=== PATIENT | female | born 1945 | race Caucasian/White ===

== ENCOUNTER 2017-01-10 08:12 | Inpatient (IN) | payer OTHER ==
[~2017-01-10] VITALS: Ht 160 cm; Wt 62.1 kg
--- NOTE | ~2017-01-10 | HC ---
Formerly [facility] [place] [address] CONSULTATION Name: RM MARTINEZ Room #: 428-P ADM IN M.R.#: [id number] Admission: 01/10/17 Attend Phys: Landon Allen Discharge: Date of : 45 Report #: [id number] THIS REPORT FOR: //name// CC: Landon Colindres REASON FOR CONSULTATION: I was asked to evaluate concerning intra-abdominal abscess and perforated appendix. HISTORY OF PRESENT ILLNESS: The patient is a 71-year-old who presented on 01/10/2017, with a day history of progressive abdominal discomfort. Two days prior to admit, she had significant increase in her pain mostly in the lower abdomen. She was admitted through the emergency room where a CAT scan showed evidence of a pelvic abscess with abnormal appendix extending into the region. There was also some thickening of the left colon without evidence of diverticular disease. Attempt at percutaneous drainage failed because of an inadequate window. She therefore underwent laparoscopic drainage procedure. It was reported thick green purulent fluid aspirated from the pelvis approximately 50 mL. Abscess cavity was washed out and a 19-Comoran Jhon drain was placed within the cavity. It appeared that the appendix had perforated. She has been treated with Zosyn, which she is tolerating well without side effect. She remains afebrile and hemodynamically stable. She does require oxygen 6 liters per nasal cannula. She reports her previous colonoscopy being normal about a year ago. ALLERGIES: None known. MEDICATIONS: As noted on her MAR including Zosyn, atorvastatin, levothyroxine, and fluoxetine. PAST MEDICAL HISTORY: ND, hysterectomy, total thyroidectomy, depression, hyperlipidemia, and left shoulder spur removal. FAMILY HISTORY: Coronary artery disease and cancer. SOCIAL HISTORY: Past smoker. No significant alcohol intake. REVIEW OF SYSTEMS: No cough or sputum production. No chest pain. Denies any dysuria or frequency. She has not had a bowel movement yet. She is taking liquids by mouth. PHYSICAL EXAMINATION: VITAL SIGNS: Afebrile and hemodynamically stable. GENERAL: Alert, cooperative and pleasant, in no acute distress. HEENT: Unremarkable. CHEST: Clear. HEART: Regular. Formerly [facility] [address] [place] [address] CONSULTATION Name: RM MARTINEZ Room #: 428-P [facility] IN M.R.#: [id number] Admission: 01/10/17 Attend Phys: Landon Allen Discharge: Date of : 45 Report #: [id number] ABDOMEN: Diffusely tender mostly in the left lower quadrant. Incisions unremarkable. Drain with purulent fluid . EXTREMITIES: Unremarkable. LABORATORY STUDIES: Sodium 137, potassium 2.9, bicarbonate 24, and creatinine 1. Liver function test normal. Hemoglobin 9.4, white count 15.1, 6% bands, 90% neutrophils, and platelet count 356,000. Urinalysis, many wbc's, moderate bacteria. Blood cultures negative. Urine culture, mixed myra, low colony counts. Abscess cavity fluid, mixed myra thus far. IMPRESSION: Postoperative day #1 from laparoscopic drainage of a pelvic abscess related to perforated appendicitis. Overall, the patient has improved, although she still has leukocytosis. She has increased oxygen requirements likely due to atelectasis in her bases. RECOMMENDATIONS: We will continue IV antibiotic therapy until we get better control of this infection. Continue with pulmonary toilet, incentive spirometry, and followup chest x-ray. Duration of her antibiotics will dependent upon her response to therapy. <ELECTRONICALLY SIGNED> By: Zelalem Pastor MD 01/14/17 1132 1238 1318 Zelalem Pastor MD /nt
--- NOTE | ~2017-01-10 | EKG ---
[place] [address] [address] [place] [address] ELECTROCARDIOGRAM REPORT Name: RM MARTINEZ Room #: 428-P ADM IN M.R.#: [id number] Admission: 01/10/17 Attend Phys: Landon Allen Discharge: Date of : 45 Report #: [id number] THIS REPORT FOR: //name// [facility] Test Date: 2017-01-11 Test Time: 16:31:51 Pat Name: RM MARTINEZ Department: Room: 428 P Gender: F Test Preparer: Ella : 1945 Requested By: Liam Reno Order Number: [id number] MD: Jose Hammer Measurements Intervals [place] Rate: 112 P: 54 CT: 128 QRS: -4 QRSD: 79 T: 58 QT: 369 QTc: 504 Interpretive Statements Sinus tachycardia Abnormal R-wave progression, early transition Nonspecific ST and T wave abnormality Prolonged QT interval Compared to ECG 11/22/2007 06:59:[address] and T wave abnormality is less pronounced Electronically Signed On 01-12-2017 8:05:58 CDT by Jose Hammer [email or web address] <ELECTRONICALLY SIGNED> By: Jose Hammer MD, [facility] 01/12/17 0805 1631 1631 Jose Hammer MD, [facility] /EPI
--- NOTE | ~2017-01-10 | EKG ---
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 : 1945 Requested By: Landon Allen Order Number: [id number] MD: Jose Hammer Measurements Intervals [place] Rate: 105 P: 39 KS: 126 QRS: -5 QRSD: 75 T: 228 QT: 350 QTc: 463 Interpretive Statements Sinus tachycardia Left atrial enlargement Abnormal R-wave progression, early transition Borderline repolarization abnormality Artifact in lead(s) I,III,aVR,aVL,aVF Compared to ECG 01/11/2017 16:31:51 No significant change was found Electronically Signed On 01-13-2017 9:46:05 CDT by Jose Hammer [email or web address] <ELECTRONICALLY SIGNED> By: Jose Hammer MD, [facility] 01/13/17 0946 1447 1447 Jose Hammer MD, [facility] /EPI
--- NOTE | ~2017-01-10 | 2DMMODE ---
[facility] [address] [place] [address] 2 D/M-MODE ECHOCARDIOGRAM Name: JUANRM JANUSZ Room #: 428-P ADM IN M.R.#: [id number] Admission: 01/10/17 Attend Phys: Landon Chandler Discharge: Date of : 45 Date of Service: 01/17/17 1642 Report #: [id number] THIS REPORT FOR: //name// APPROVED REPORT Study performed: 01/17/2017 13:04:07 EXAM: Comprehensive 2D, Doppler, and color-flow Echocardiogram Patient Location: Bedside Room #: 428 Status: routine BSA: 1.64 HR: 102 bpm BP: 117/65 mmHg Other Information Study Quality: Adequate Indications Post-op Pulmonary edema. 2D Dimensions IVC: 14.00 mm Volumes Left Atrial Volume (Systole) Single Plane 4CH: 37.02 mL Single Plane 2CH: 35.15 mL LA ESV Index: 24.00 mL/m2 Tricuspid Valve PA Pressure: 37.00 mmHg Left Ventricle The left ventricle is normal size. There is normal LV segmental wall motion. There is normal left ventricular wall thickness. Left ventricular systolic function is hyperdynamic. Intracavatary left ventricular peak gradient of 24 mmHg. LVEF is >70%. Grade I - abnormal relaxation pattern. Right Ventricle The right ventricle is normal size. The right ventricular systolic function is normal. Atria The left atrium size is normal. The right atrium size is [facility] [address] [place] [address] 2 D/M-MODE ECHOCARDIOGRAM Name: RM MARTINEZ Room #: 428-P ADM IN M.R.#: [id number] Admission: 01/10/17 Attend Phys: Landon Chandler Discharge: Date of : 45 Date of Service: 01/17/17 1642 Report #: [id number] normal. Aortic Valve Aortic valve is not well visualized. No aortic regurgitation is present. There is no aortic valvular stenosis. Mitral Valve The mitral valve is normal in structure. Trace mitral regurgitation. No evidence of mitral valve stenosis. Tricuspid Valve The tricuspid valve is normal in structure. There is trace tricuspid regurgitation. There is mild pulmonary hypertension. Pulmonic Valve The pulmonary valve is normal in structure. There is no pulmonic valvular regurgitation. Great Vessels The aortic root is normal in size. IVC is normal in size and collapses >50% with inspiration. Pericardium There is no pericardial effusion. <Conclusion> Limited study Left ventricular systolic function is hyperdynamic. Asymmetric septal hypertrophy suggested. Intracavatary left ventricular peak gradient of 24 mmHg. There is normal LV segmental wall motion. LVEF >70%. Grade I diastolic dysfunction Aortic valve is not well visualized. No stenosis or insufficiency The mitral valve is normal in structure. Trace mitral regurgitation. Pulmonary artery pressure could not be reliably ascertained. There is no pericardial effusion. <ELECTRONICALLY SIGNED> By: Jose Hammer MD, [facility] 01/17/171641 41 41 Jose Hammer MD, [facility] /INF
[~2017-01-10 08:12] MED LIST: CRESTOR40 MG PO; MOBIC15 MG PO; PROZAC20 MG PO; SYNTHROID175 MCG PO
[2017-01-10 08:13] VITALS: BP 153/77
[2017-01-10 09:06] LABS: HEMATOCRIT 37.1 % (37.0-47.0); HEMOGLOBIN 12.7 gm/dL (12.0-15.0); MCH 29.4 pg (26.0-34.0); MCHC 34.1 g/dL (28.0-37.0); MCV 86.4 fL (80.0-100.0); PLATELET COUNT 373 thou/uL (150-400); RDW 13.7 % (10.5-14.5); WBC 18.5 thou/uL (4.0-11.0)
[2017-01-10 09:08] LABS: MANUAL DIFF YES
[2017-01-10 09:28] LABS: URINE BILIRUBIN 1+ (Negative); URINE BLOOD 2+ (Negative); URINE COLOR YELLOW; URINE GLUCOSE-RANDOM* NEGATIVE (Negative); URINE KETONES TRACE (Negative); URINE NITRITE NEGATIVE (Negative); URINE PROTEIN (DIPSTICK) 2+ (Negative); URINE SPECIFIC GRAVITY 1.025 (1.003-1.035)
[2017-01-10 09:31] LABS: ICTOTEST (BILI CONFIRMATORY) Negative (Negative)
[2017-01-10 09:35] LABS: HYALINE CASTS 0-3 Few /LPF (None Seen); SQUAMOUS 4-10 Moderate /LPF (0-3); URINE WBC >25 Many /HPF (0-5)
[2017-01-10 09:36] LABS: AMORPHOUS URATES Few /LPF (None Seen); URINE RBC None Seen /HPF (0-2)
[2017-01-10 09:42] LABS: ABSOLUTE NEUTROPHILS 15.9 thou/uL (1.4-8.2); PLATELET ESTIMATE NORMAL; TOTAL CELL COUNT 100
[2017-01-10 09:42] LABS: ANION GAP 10 mmol/L (7-16); BUN 12 mg/dL (7-18); CALCIUM 6.6 mg/dL (8.5-10.1); CHLORIDE 99 mmol/L (98-107); CO2 26 mmol/L (21-32); GLUCOSE 146 mg/dL (74-106); POTASSIUM 3.7 mmol/L (3.5-5.1); SODIUM 135 mmol/L (136-145)
[2017-01-10 09:47] LABS: ALKALINE PHOSPHATASE 120 U/L (46-116); DIRECT BILIRUBIN < 0.1 mg/dL (<0.1-0.3); SGOT 15 U/L (15-37); SGPT 16 U/L (30-65); TOTAL BILIRUBIN 0.4 mg/dL (<0.1-1.0); TOTAL PROTEIN 7.9 g/dL (6.4-8.2)
[2017-01-10 10:49] VITALS: BP 140/73
[2017-01-10 11:17] VITALS: BP 139/64
[2017-01-10] MEDS ORDERED: LIPITOR 10 MG10 M1 PO (12:09)
[2017-01-10 13:33] LABS: TSH 4.086 uIU/mL (0.358-3.740)
[2017-01-10] MEDS ORDERED: WELLBUTRIN XL150 MG PO (15:13)
[2017-01-10] MEDS ORDERED: CALCIUM 600 +1 EAC1 PO (15:14)
[2017-01-10] MEDS ORDERED: ASPIRIN EC81 M1 PO (15:14)
[2017-01-10] MEDS ORDERED: TYLENOL EXTRA500 MG PO (15:16)
[2017-01-10] MEDS ORDERED: IBUPROFEN 200200 M1 PO (15:17)
[2017-01-10 20:00] VITALS: BP 118/66
[2017-01-11 00:45] VITALS: BP 100/57
[2017-01-11 04:00] VITALS: BP 122/73
[2017-01-11 05:11] LABS: GLYCOHEMOGLOBIN (HGB A1C) 6.2 % (4.8-5.6)
[2017-01-11 06:18] LABS: HEMATOCRIT 31.7 % (37.0-47.0); MCH 28.4 pg (26.0-34.0); MCHC 32.7 g/dL (28.0-37.0); PLATELET COUNT 339 thou/uL (150-400); RBC 3.64 mil/uL (4.20-5.00); RDW 13.8 % (10.5-14.5); WBC 19.3 thou/uL (4.0-11.0)
[2017-01-11 06:19] LABS: HEMOGLOBIN 10.4 gm/dL (12.0-15.0); MANUAL DIFF YES
[2017-01-11 06:30] LABS: CREATININE 1.1 mg/dL (0.6-1.0); MAGNESIUM 1.8 mg/dL (1.8-2.4); POTASSIUM 3.7 mmol/L (3.5-5.1)
[2017-01-11 06:40] LABS: CALCIUM 5.8 mg/dL (8.5-10.1)
[2017-01-11 08:56] VITALS: BP 121/64
[2017-01-11 09:37] LABS: ABSOLUTE NEUTROPHILS 17.4 thou/uL (1.4-8.2); TOTAL CELL COUNT 100
[2017-01-11 09:38] LABS: PLATELET ESTIMATE NORMAL
[2017-01-11 10:04] VITALS: BP 121/64
[2017-01-11 11:47] LABS: INR 1.1
[2017-01-11 16:41] VITALS: BP 106/61
[2017-01-11 20:30] VITALS: BP 132/64
[2017-01-12 03:52] VITALS: BP 97/51
[2017-01-12 07:29] LABS: HEMATOCRIT 29.1 % (37.0-47.0); HEMOGLOBIN 9.7 gm/dL (12.0-15.0); MCH 28.8 pg (26.0-34.0); MCHC 33.2 g/dL (28.0-37.0); MCV 86.9 fL (80.0-100.0); PLATELET COUNT 329 thou/uL (150-400); RBC 3.35 mil/uL (4.20-5.00); RDW 13.7 % (10.5-14.5); WBC 18.7 thou/uL (4.0-11.0)
[2017-01-12 07:33] LABS: MANUAL DIFF YES
[2017-01-12 07:45] LABS: ALBUMIN 2.1 g/dL (3.4-5.0); MAGNESIUM 1.8 mg/dL (1.8-2.4); POTASSIUM 3.3 mmol/L (3.5-5.1); TOTAL BILIRUBIN 0.5 mg/dL (<0.1-1.0); TOTAL PROTEIN 6.2 g/dL (6.4-8.2)
[2017-01-12 07:56] LABS: CALCIUM 5.4 mg/dL (8.5-10.1)
[2017-01-12 09:12] LABS: ABSOLUTE NEUTROPHILS 16.8 thou/uL (1.4-8.2); PLATELET ESTIMATE NORMAL; TOTAL CELL COUNT 100
[2017-01-12 11:07] VITALS: BP 115/63
[2017-01-12 11:30] VITALS: BP 83/53
[2017-01-12 12:00] VITALS: BP 106/58
[2017-01-12 12:30] VITALS: BP 85/63
[2017-01-12 14:55] LABS: ABG SAMPLE TYPE ARTERIAL; BE(vivo) -5.8 mmol/L (-2 to +3); HCO3 18.4 mmol/L (22.0-26.0); LACTATE 0.83 mmol/L (0.5-2.0); O2(CT) 13.7 mL/dL (15.0-23.0); O2Hb 91.1 % (92.0-98.0); PCO2 31.9 mmHg (35.0-45.0); PO2 63.9 mmHg (80.0-100.0); STICK SITE R.RADIAL; pH 7.379 (7.360-7.450); sO2 92.3 % (92.0-98.0); tCO2 19.4 mmol/L (24.0-30.0)
[2017-01-12 14:56] LABS: Face Shield 50 %; VDS 50% VENTI MASK cc
[2017-01-12 16:00] LABS: HEMATOCRIT 29.8 % (37.0-47.0); HEMOGLOBIN 9.8 gm/dL (12.0-15.0); MANUAL DIFF YES; MCH 28.9 pg (26.0-34.0); MCV 87.5 fL (80.0-100.0); PLATELET COUNT 341 thou/uL (150-400); WBC 20.8 thou/uL (4.0-11.0)
[2017-01-12 16:17] LABS: ANION GAP 12 mmol/L (7-16); BUN 7 mg/dL (7-18); CHLORIDE 102 mmol/L (98-107); CO2 22 mmol/L (21-32); CREATININE 0.9 mg/dL (0.6-1.0); GLUCOSE 162 mg/dL (74-106); MAGNESIUM 1.6 mg/dL (1.8-2.4); POTASSIUM 3.2 mmol/L (3.5-5.1); SODIUM 136 mmol/L (136-145); TROPONIN-I < 0.04 ng/mL (<0.04-0.07)
[2017-01-12 16:19] LABS: CALCIUM 5.1 mg/dL (8.5-10.1)
[2017-01-12 16:25] LABS: TOTAL CELL COUNT 100; TOXIC GRANULATION 1+
[2017-01-12 16:26] LABS: ANISOCYTOSIS SLIGHT; MICROCYTES SLIGHT
[2017-01-12 20:00] VITALS: BP 118/71
[2017-01-13 04:00] VITALS: BP 102/58
[2017-01-13 07:28] LABS: HEMATOCRIT 27.5 % (37.0-47.0); HEMOGLOBIN 9.4 gm/dL (12.0-15.0); MCH 29.5 pg (26.0-34.0); MCHC 34.2 g/dL (28.0-37.0); MCV 86.3 fL (80.0-100.0); RBC 3.19 mil/uL (4.20-5.00); RDW 14.2 % (10.5-14.5); WBC 15.1 thou/uL (4.0-11.0)
[2017-01-13 07:43] LABS: ALBUMIN 2.2 g/dL (3.4-5.0); ANION GAP 13 mmol/L (7-16); BUN 4 mg/dL (7-18); CHLORIDE 100 mmol/L (98-107); CO2 24 mmol/L (21-32); GLUCOSE 131 mg/dL (74-106); PHOSPHORUS 4.4 mg/dL (2.5-4.9); SODIUM 137 mmol/L (136-145)
[2017-01-13 07:45] LABS: POTASSIUM 2.8 mmol/L (3.5-5.1)
[2017-01-13 07:46] LABS: CALCIUM < 5.0 mg/dL (8.5-10.1)
[2017-01-13 07:58] VITALS: BP 66/47
[2017-01-13 15:37] VITALS: BP 119/52
[2017-01-13 20:00] VITALS: BP 98/61
[2017-01-14 04:30] VITALS: BP 93/59
[2017-01-14 06:22] LABS: HEMATOCRIT 27.1 % (37.0-47.0); MCH 29.1 pg (26.0-34.0); MCHC 33.4 g/dL (28.0-37.0); MCV 87.1 fL (80.0-100.0); RBC 3.11 mil/uL (4.20-5.00); RDW 13.9 % (10.5-14.5); WBC 10.1 thou/uL (4.0-11.0)
[2017-01-14 06:32] LABS: CREATININE 0.8 mg/dL (0.6-1.0); PHOSPHORUS 4.2 mg/dL (2.5-4.9); POTASSIUM 3.3 mmol/L (3.5-5.1)
[2017-01-14 07:06] LABS: CALCIUM 5.8 mg/dL (8.5-10.1)
[2017-01-14 08:00] VITALS: BP 86/56
[2017-01-14 16:00] VITALS: BP 105/72
[2017-01-14 20:36] VITALS: BP 133/63
[2017-01-15 03:25] VITALS: BP 96/60
[2017-01-15 08:00] VITALS: BP 109/69
[2017-01-15 16:00] VITALS: BP 101/51
[2017-01-15 20:36] VITALS: BP 102/59
[2017-01-16 03:38] VITALS: BP 102/53
[2017-01-16 06:33] LABS: CREATININE 0.9 mg/dL (0.6-1.0)
[2017-01-16 06:34] LABS: CALCIUM 5.4 mg/dL (8.5-10.1)
[2017-01-16 10:05] VITALS: BP 118/71
[2017-01-16 16:42] VITALS: BP 90/50
[2017-01-16 20:30] VITALS: BP 88/52
[2017-01-17 04:30] VITALS: BP 116/67
[2017-01-17 07:50] VITALS: BP 117/65
[2017-01-17 15:31] VITALS: BP 113/72
[2017-01-17 19:21] VITALS: BP 106/60
[2017-01-18 04:53] VITALS: BP 120/80
[2017-01-18 06:27] LABS: ALBUMIN 2.4 g/dL (3.4-5.0); CREATININE 0.9 mg/dL (0.6-1.0); PHOSPHORUS 4.7 mg/dL (2.5-4.9); POTASSIUM 3.7 mmol/L (3.5-5.1)
[2017-01-18 06:28] LABS: CALCIUM 5.6 mg/dL (8.5-10.1)
[2017-01-18 07:45] VITALS: BP 114/64
[2017-01-18] MEDS ORDERED: AUGMENTIN 875-1 EACH PO (09:37)
[2017-01-18] MEDS ORDERED: PROBIOTIC1 EAC1 PO (09:37)
[2017-01-18] MEDS ORDERED: GLUCOPHAGE500 MG PO (09:38)
[2017-01-18 15:30] VITALS: BP 118/73
[2017-01-18 20:55] VITALS: BP 105/63
[2017-01-19 03:58] VITALS: BP 108/59
[2017-01-19 07:20] VITALS: BP 118/78
[2017-01-19 07:26] VITALS: BP 118/78
[2017-01-19] MEDS ORDERED: ZOSYN 3.373.375 GM/1 IV (09:29)
[2017-01-19 15:55] VITALS: BP 100/65
[2017-01-19 20:00] VITALS: BP 78/44
[2017-01-20] VITALS: BP 99/62
[2017-01-20 04:19] VITALS: BP 115/60
[2017-01-20 05:37] LABS: ABSOLUTE NEUTROPHILS 5.2 thou/uL (1.4-8.2); BASOPHILS 0.5 % (0.0-2.0); EOSINOPHILS 2.5 % (0.0-3.0); HEMATOCRIT 28.7 % (37.0-47.0); HEMOGLOBIN 9.6 gm/dL (12.0-15.0); LYMPHOCYTES 14.6 % (24.0-44.0); MCH 29.3 pg (26.0-34.0); MCHC 33.5 g/dL (28.0-37.0); MCV 87.4 fL (80.0-100.0); MONOCYTES 8.9 % (1.0-8.0); PLATELET COUNT 387 thou/uL (150-400); POLYS 73.5 % (36.0-66.0); RBC 3.28 mil/uL (4.20-5.00); RDW 14.6 % (10.5-14.5); WBC 7.1 thou/uL (4.0-11.0)
[2017-01-20 05:47] LABS: CALCIUM 6.1 mg/dL (8.5-10.1); CREATININE 0.8 mg/dL (0.6-1.0); MANUAL DIFF NO
[2017-01-20 08:55] VITALS: BP 98/47
[2017-01-20] MEDS ORDERED: CIPRO500 MG PO (10:12)
[2017-01-20] MEDS ORDERED: FLAGYL500 MG PO (10:12)
== END 2017-01-20 12:17 | DRG 853 ==
LOC: ER 08:12 → EROBS 10:38 → 4E 10:38 → ENTRNSPT 01-20 12:05 → EDTRNSPTSTS 01-20 12:08 → 4E 01-20 12:17
PROVIDERS: Emergency Medicine; Hospitalist; Nurse Practitioner; Specialist
PROC: 0W9J40Z Drainage of Pelvic Cavity with Drainage Device, Percutaneous Endoscopic Approach (ICD-10-PCS; principal; 2017-01-12)
DX: A41.9 Sepsis, unspecified organism (principal); K35.2 Acute appendicitis with generalized peritonitis; K65.1 Peritoneal abscess; J18.9 Pneumonia, unspecified organism; J96.90 Respiratory failure, unspecified, unspecified whether with hypoxia or hypercapnia; N39.0 Urinary tract infection, site not specified; E44.1 Mild protein-calorie malnutrition; J98.11 Atelectasis; E89.0 Postprocedural hypothyroidism; F32.9 Major depressive disorder, single episode, unspecified; E78.5 Hyperlipidemia, unspecified; K59.00 Constipation, unspecified; E83.51 Hypocalcemia; N73.9 Female pelvic inflammatory disease, unspecified; B96.20 Unspecified Escherichia coli [E. coli] as the cause of diseases classified elsewhere; I25.2 Old myocardial infarction; Z90.710 Acquired absence of both cervix and uterus; Z87.891 Personal history of nicotine dependence; Z88.8 Allergy status to other drugs, medicaments and biological substances; Z80.9 Family history of malignant neoplasm, unspecified; Z82.49 Family history of ischemic heart disease and other diseases of the circulatory system; Z68.24 Body mass index [BMI] 24.0-24.9, adult
CPT/HCPCS: 10183; 10783; 50010; 50101; 50249; 50386; 50455; 50555; 51489; 52265; 53307; 53310; 54118; 56525; 56526; 57092; 62110; 62900; 70005

== ENCOUNTER → 2017-02-08 | Outpatient (CLI) | payer OTHER ==
[~2017-02-08] MED LIST changes: +ASPIRIN EC81 M1 PO; +AUGMENTIN 875-1 EACH PO; +CALCIUM 600 +1 EAC1 PO; +CIPRO500 MG PO; +FLAGYL500 MG PO; +GLUCOPHAGE500 MG PO; +IBUPROFEN 200200 M1 PO; +LIPITOR 10 MG10 M1 PO; +PROBIOTIC1 EAC1 PO; +TYLENOL EXTRA500 MG PO; +WELLBUTRIN XL150 MG PO; +ZOSYN 3.373.375 GM/1 IV
[2017-02-08 10:00] LABS: CREATININE 0.9 mg/dL (0.6-1.0)
== END ==
LOC: LABMALL 09:22
PROVIDERS: Surgery
DX: K37 Unspecified appendicitis (principal)

== ENCOUNTER → 2017-02-18 | Outpatient (CLI) | payer OTHER ==
[~2017-02-18] VITALS: Ht 157.5 cm; Wt 57.1 kg
[~2017-02-18] MED LIST changes: +CIPROFLOXACIN750 MG PO; +FLAGYL500 M1 PO
--- NOTE | ~2017-02-18 | P ---
[facility] [place] [address] [place] [address] PROCEDURE REPORT Name: RM MARTINEZ Room #: REG [facility] [id number] Admission: 02/18/17 Attend Phys: Donnie Alegre Discharge: Date of : 45 Report #: [id number] THIS REPORT FOR: //name// CC: Donnie Chavesen Bernadine DATE OF SERVICE: 02/18/2017 PROCEDURE PERFORMED: Colonoscopy. HISTORY OF PRESENT ILLNESS: The patient is a 71-year-old female who had an episode of appendicitis with abscess last month. She underwent a surgically placed drain, was treated with IV antibiotics. She denies any symptoms at this time. Plan is later for the surgeon to remove her appendix. No family history of colon cancer. DESCRIPTION OF PROCEDURE: The risks and benefits of the procedure were explained to the patient, those risks including but not limited to bleeding, perforation, the risk of sedation. She understood these risks and gave informed consent. Sedation was given using propofol per anesthesia. Next, a digital rectal exam was initially performed, which was normal. Next, using a standard [employer] colonoscope, the scope was placed in the patient's anus and advanced under direct vision to the cecum. The overall prep was excellent. The cecum and ileocecal valve were normal in appearance. The appendiceal orifice was normal. The terminal ileum was intubated and normal in appearance. Ascending, transverse, descending and sigmoid colon were all normal. The rectal mucosa was normal. On retroflexion, no abnormalities were noted. The scope was then withdrawn and the procedure terminated. The patient tolerated the procedure well. IMPRESSION: Normal colonoscopy. RECOMMENDATIONS: Okay to proceed with appendectomy in the near future. Thank you for allowing me to participate in her care. By: 1059 1311 Donnie Chawla MD /nt
== END | disposition home or self-care (01) ==
LOC: EDSTATUS 05:31 → GI 05:31
DX: Z12.11 Encounter for screening for malignant neoplasm of colon (principal)
CPT/HCPCS: 62110; 62900

== ENCOUNTER 2017-07-17 12:23 | Emergency (ER) | payer OTHER ==
[~2017-07-17] VITALS: Ht 157.5 cm; Wt 59.0 kg
[~2017-07-17 12:23] MED LIST changes: +ASMANEX110 MCG INH; +FLOMAX0.4 MG PO; +HYDROCODONE-AP1 EAC6 PO; +MIRALAX17 GM PO; +ONDANSETRON HCL4 M2 PO
[2017-07-17 13:11] LABS: ABSOLUTE NEUTROPHILS 8.5 thou/uL (1.4-8.2); BASOPHILS 0.6 % (0.0-2.0); EOSINOPHILS 0.9 % (0.0-3.0); HEMATOCRIT 36.7 % (37.0-47.0); HEMOGLOBIN 12.5 gm/dL (12.0-15.0); LYMPHOCYTES 13.6 % (24.0-44.0); MCH 30.5 pg (26.0-34.0); MCHC 34.2 g/dL (28.0-37.0); MCV 89.4 fL (80.0-100.0); MONOCYTES 5.7 % (1.0-8.0); PLATELET COUNT 222 thou/uL (150-400); POLYS 79.2 % (36.0-66.0); RBC 4.11 mil/uL (4.20-5.00); WBC 10.7 thou/uL (4.0-11.0)
[2017-07-17 13:14] LABS: CALCIUM 7.4 mg/dL (8.5-10.1); CREATININE 1.3 mg/dL (0.6-1.0); POTASSIUM 4.2 mmol/L (3.5-5.1)
[2017-07-17] MEDS ORDERED: ULTRAM 50MG TAB50 MG PO (14:38)
[2017-07-17] MEDS ORDERED: IBUPROFEN 600600 M1 PO (14:38)
== END 2017-07-17 15:04 | disposition home or self-care (01) ==
LOC: ER 12:23
PROVIDERS: Nurse Practitioner
DX: S70.02XA Contusion of left hip, initial encounter (principal); F32.9 Major depressive disorder, single episode, unspecified; E78.5 Hyperlipidemia, unspecified; Z87.891 Personal history of nicotine dependence; W01.0XXA Fall on same level from slipping, tripping and stumbling without subsequent striking against object, initial encounter; Y93.89 Activity, other specified; Y92.89 Other specified places as the place of occurrence of the external cause; Y99.8 Other external cause status

== ENCOUNTER → 2018-01-25 | Outpatient (CLI) | payer OTHER ==
[~2018-01-25] VITALS: Ht 157.5 cm; Wt 54.4 kg
[~2018-01-25] MED LIST changes: +CALCI-MAX CAPS1 EACH PO; +IBUPROFEN 600600 M1 PO; +PROAIR HFA8.5 GM INH; +REQUIP0.5 MG PO; +ULTRAM 50MG TAB50 MG PO
--- NOTE | ~2018-01-25 | CATHLAB ---
[facility] [address] [place] [address] INVASIVE PROCEDURE REPORT Name: JUANRM James Room #: REG Kamar#: [id number] Admission: 01/25/18 Attend Phys: Dez Dobbs Discharge: Date of : 45 Date of Service: 01/26/18 1206 Report #: [id number] THIS REPORT FOR: //name// APPROVED REPORT Study performed: 01/25/2018 11:10:34 Patient Details Patient Status: Out-Patient Room #: The patient is a 72 year-old female Event Personnel Dez Kim Store Leader, Jorje Lee RN, Brenda Cerna Sandifer, David Monitor Procedures Performed Left Heart Cath w/or w/o Coronaries [id number] [facility] supervision of conscious sedation Indication Positive stress test, Chest pain, Hypertrophic cardiomyopathy on echocardiogram Procedure Narrative The Right Groin^ was infiltrated with 1% Lidocaine subcutaneous anesthesia. A PINNACLE 4FR Sheath #[id number] sheath was inserted into the RFA^. Coronary angiography was performed using coronary diagnostic catheters. The right coronary system was accessed and visualized with a JR4 catheter. The left coronary system was accessed and visualized with a JL4 catheter. The left ventricle was accessed and visualized with a PIGTAIL catheter. Left ventricular/Aortic Valve gradient assessed via catheter pullback. Hemostasis was obtained with manual pressure following sheath removal without any complications. There was no hematoma. Intraoperative Conscious Sedation Sedation start time: 11.47 Case end Time: 12.20 Versed 2 mg Fluoro Time: 1.32 minutes Dose: DAP 1645 cGycm2 244 mGy Contrast Type and Amount: Omnipaque 45 ml Coronary Angiography [facility] [address] [place] [address] INVASIVE PROCEDURE REPORT Name: RM MARTINEZ Room #: REG Kamar#: [id number] Admission: 01/25/18 Attend Phys: Dez Dobbs Discharge: Date of : 45 Date of Service: 01/26/18 1206 Report #: [id number] The patient's coronary anatomy is right dominant. Diagnostic Cath Left Main Normal origin and caliber bifurcates left anterior descending left circumflex free of high-grade disease LAD Moderate caliber type 2 vessel courses in the anterior interventricular sulcus terminating as a small caliber vessel in the apex. It is free of high-grade lesion although does have luminal irregularities noted. Diagonal 1 Small-caliber vessel coursing anterolateral wall free of high-grade disease Circumflex Mean uterine vessel which gives rise to several small branches proximally OM1 Small diminutive short vessel without significant lesions Right Coronary Large-caliber vessel normal origin with luminal irregularities proximally proceeds posterior to the crux of the heart rate is rise to posterior descending artery. This circulation is as small to moderate caliber with luminal regular he's noted R PDA Small-caliber vessel without significant obstructive lesions present Left Ventriculography Left Ventriculography was not performed. There is a intra-left ventricular cavity gradient along the outflow tract of approximately 20 mmHg. Hemodynamics The aortic pressure is 118/54 mmHg with a mean of 72 mmHg. The left ventricular pressure is 104/15 mmHg with a mean of mmHg. The left ventricular end diastolic pressure is 13 mmHg. Pullback from the left ventricle to the aorta revealed a mm gradient across the aortic valve. Conclusion 1. Minimal coronary artery disease 2. Abnormal he was at MX with elevated left ventricular end-diastolic pressure and evidence of a 20-30 millimeterHg outflow tract gradient Recommendations Cardiac Risk Reduction Program Medical Therapy <ELECTRONICALLY SIGNED> By: Dez Kim MD 01/26/181205 05 05 Dez Kim MD /INF
[2018-01-25 09:54] VITALS: BP 132/71
== END | disposition home or self-care (01) ==
LOC: CATH 09:29
DX: I25.10 Atherosclerotic heart disease of native coronary artery without angina pectoris (principal); E11.9 Type 2 diabetes mellitus without complications; I25.2 Old myocardial infarction; E78.5 Hyperlipidemia, unspecified; E89.0 Postprocedural hypothyroidism; Z82.49 Family history of ischemic heart disease and other diseases of the circulatory system; Z87.891 Personal history of nicotine dependence; Z95.5 Presence of coronary angioplasty implant and graft; Z90.710 Acquired absence of both cervix and uterus; Z98.890 Other specified postprocedural states; Z79.899 Other long term (current) drug therapy; Z87.440 Personal history of urinary (tract) infections; Z79.82 Long term (current) use of aspirin

== ENCOUNTER → 2018-05-05 | Outpatient (CLI) | payer OTHER ==
[~2018-05-05] VITALS: Ht 157.5 cm; Wt 63.5 kg
[~2018-05-05] MED LIST changes: +PEPCID20 MG PO; +TOPROL XL25 MG PO; +TUMS PO; +ZOFRAN ODT4 MG PO
--- NOTE | ~2018-05-05 | P ---
[facility] [place] [address] PROCEDURE REPORT Name: RM MARTINEZ Room #: REG [facility] Kamar#: [id number] Admission: 05/05/18 Attend Phys: Donnie Alegre Discharge: Date of : 45 Report #: [id number] THIS REPORT FOR: //name// CC: Donnie Colindres MD DATE OF SERVICE: 05/05/2018 PROCEDURE PERFORMED: Upper endoscopy with biopsies. HISTORY OF PRESENT ILLNESS: The patient is a 72-year-old female with a history of midepigastric abdominal pain starting in February of this year. She also has had several episodes of nausea and vomiting. She denies any dysphagia or odynophagia. No previous history of upper endoscopy. Her bowel movements have been normal. She denies any melenic stools. She does take aspirin on a daily basis. She recently started on Pepcid b.i.d. within the last week. Reports no significant change in her symptoms. She denies any significant heartburn symptoms. DESCRIPTION OF PROCEDURE: The risks and benefits of the procedure were explained to the patient, those risks including but not limited to bleeding, perforation, the risk of sedation. She understood these risks and gave informed consent. Sedation was given using propofol per anesthesia. Next, using a standard Olympus upper endoscope, the scope was placed in the patient's mouth and advanced under direct vision through the esophagus, stomach and into the second portion of the duodenum. The larynx was normal in appearance. The upper and midesophagus was normal. In the distal esophagus, a pink mucosal tongue is noted one extending approximately 2 cm above the GE junction, likely representing Dasilva's esophagus. Biopsies were obtained. No evidence of erosive esophagitis was seen. Overall, the gastric mucosa was normal. Biopsies were obtained to rule out H. pylori. The pylorus was normal and patent. The duodenal bulb, first and second portion were all normal. Biopsies were obtained to rule out the possibility of celiac sprue. The scope was then withdrawn and the procedure terminated. The patient tolerated the procedure well. IMPRESSION: 1. Possible Dasilva's esophagus. 2. Otherwise, normal upper endoscopy. RECOMMENDATIONS: 1. Await biopsy results. 2. We will switch from Pepcid to daily PPI therapy as this may be beneficial for her abdominal pain, especially if she has Dasilva's esophagus, would recommend continuing this long-term. If the patient has continued symptoms, consider an ultrasound of the abdomen. [address] [address] PROCEDURE REPORT Name: RM MARTINEZ Room #: REG KILLIAN Galvin#: [id number] Admission: 05/05/18 Attend Phys: Donnie Alegre Discharge: Date of : 45 Report #: [id number] Thank you for allowing me to participate in her care. By: 0955 1205 Donnie Chawla MD /grant
--- NOTE | 2018-05-09 16:07 | PATH ---
[facility] [place] [address] PATHOLOGY RPT PROCEDURE Name: RHONDA VALENTIN Room #: REG DERICKCollin Wolff.#: [id number] Admission: 05/05/18 Date of : 45 Discharge: Report #: [id number] Path Case #: [id number] [facility] Accession Number: [id number] . 01 Material submitted: . PART A: DUODENAL BX R/O CELIAC PART B: GASTRIC BX R/O H. PYLORI PART C: DISTAL ESOPHAGUS R/O MUHAMMAD'S . 01 Clinical history: . Abdominal pain, rule out celiac, rule out H. pylori, rule out Muhammad's . 02 Diagnosis: A. Small bowel mucosa, duodenum R/O celiac, endoscopic biopsy: - No diagnostic abnormalities present. - Negative for villous blunting or increase in intraepithelial lymphocytes. . B. Gastric mucosa, gastric R/O H. pylori, endoscopic biopsy: - Moderate reactive gastropathy. - Negative for intestinal metaplasia or atrophy. - Negative for Helicobacter pylori (properly controlled immunohistochemical stain performed). . C. Gastroesophageal mucosa, distal esophagus R/O Muhammad's, endoscopic biopsy: - Specialized columnar epithelium (gastric cardia-type mucosa) with intestinal metaplasia, changes compatible with Muhammad's metaplasia. - FOCAL LOW-GRADE DYSPLASIA PRESENT. - Squamous mucosa with mild esophagitis. (IUV:bo; 05/08/2018) QMS/05/08/2018 . 02 Comment: Dr. Peña Tong has seen associate sales representative slide of part C and concurs with my diagnosis. (IUV:bo; 05/08/2018) . 02 Electronically signed: . Alyson Thomas MD, Pathologist NPI- [id number] . 01 Gross description: . A. Received in formalin labeled "Rhonda Valentin, duodenal BX," are 5 segments of suarez soft tissue measuring 0.9 x 0.9 x 0.3 cm in aggregate dimensions and ranging from 0.3 to 0.4 cm in maximum dimension. The specimen is submitted entirely in cassette A1. [address] [address] PATHOLOGY RPT PROCEDURE Name: RHONDA VALENTIN Room #: REG Collin Galvin#: [id number] Admission: 05/05/18 Date of : 45 Discharge: Report #: [id number] Path Case #: [id number] . B. Received in formalin labeled "Rhonda Valentin, gastric BX," are 3 segments of suarez soft tissue measuring 0.9 x 0.5 x 0.2 cm in aggregate dimensions and ranging from 0.3 to 0.4 cm in maximum dimension. The specimen is submitted entirely in cassette B1. . C. Received in formalin labeled "Rhonda Valentin, distal esophagus BX," are 2 segments of suarez soft tissue measuring 0.7 x 0.2 x 0.2 cm in aggregate dimensions and ranging from 0.3 to 0.4 cm in maximum dimension. The specimen is submitted entirely in cassette C1. (TSD; 05/05/2018) TOB/TOB . 02 Pathologist provided ICD-10: K31.9, K22.710, K20.9 . 02 CPT . 342669, 039536, 064710, Q09775 Specimen Comment: A courtesy copy of this report has been sent to Specimen Comment: [phone], . Specimen Comment: Report sent to and Performed at: [address], [place] [id number] MD Noah Higgins MD Phone: [phone] Performed at: 02 [facility] [address] [place], [place] [id number] MD Alyson Thomas MD Phone: [phone]
== END | disposition home or self-care (01) ==
LOC: GI 07:52
DX: K31.9 Disease of stomach and duodenum, unspecified (principal); K22.710 Barrett's esophagus with low grade dysplasia; K20.9 Esophagitis, unspecified; I10 Essential (primary) hypertension; I25.2 Old myocardial infarction; E78.5 Hyperlipidemia, unspecified; F32.9 Major depressive disorder, single episode, unspecified; F41.9 Anxiety disorder, unspecified; Z87.891 Personal history of nicotine dependence; Z90.710 Acquired absence of both cervix and uterus; Z90.49 Acquired absence of other specified parts of digestive tract; Z87.19 Personal history of other diseases of the digestive system; Z79.899 Other long term (current) drug therapy; Z79.82 Long term (current) use of aspirin
CPT/HCPCS: 62110; 62900

== ENCOUNTER → 2018-05-26 | Outpatient (CLI) | payer OTHER ==
[~2018-05-26] VITALS: Ht 157.5 cm; Wt 63.5 kg
--- NOTE | ~2018-05-26 | P ---
[facility] [place] [address] PROCEDURE REPORT Name: RM MARTINEZ Room #: REG KILLIAN Galvin#: [id number] Admission: 05/26/18 Attend Phys: Donnie Alegre Discharge: Date of : 45 Report #: [id number] THIS REPORT FOR: //name// CC: Donnie Colindres MD DATE OF SERVICE: 05/26/2018 PROCEDURE PERFORMED: Esophagoscopy with ablation of Dasilva's esophagus. HISTORY OF PRESENT ILLNESS: The patient is a 72-year-old female who underwent an upper endoscopy by myself on 05/05/2018 for midepigastric abdominal pain, as well as intermittent nausea and vomiting. At that time, the patient was taking Pepcid b.i.d. She was noted to have possible Dasilva's esophagus in the distal esophagus. Biopsies were obtained, which were negative for celiac sprue as well as H. pylori, however, positive for Dasilva's esophagus with focal low-grade dysplasia present. I then spoke with the patient in the office on 05/18/2018 to explain the biopsy results and gave her options including potential ablation, which she agrees with. She now presents today for her first ablation. She is currently taking omeprazole 20 mg on a daily basis. She denies any pain or dysphagia. She has been holding her aspirin for the last several days. DESCRIPTION OF PROCEDURE: The risks and benefits of the procedure were explained to the patient, those risks including but not limited to bleeding, perforation and the risk of sedation. She understood these risks and gave informed consent. Sedation was given using propofol per Anesthesia. Next, using a standard Olympus upper endoscope, the scope was placed in the patient's mouth and advanced under direct vision through the esophagus, stomach and into the second portion of the duodenum. The larynx was normal in appearance. The upper and mid esophagus was normal. Once again, an area of Dasilva's was noted in the distal esophagus. This extended from 34 cm to 37 cm. Overall, the gastric mucosa was normal. The pylorus was normal and patent. The duodenal bulb, first and second portion were normal. The scope was then brought back up into the patient's distal esophagus and the esophagus was irrigated with Mucomyst 1% mixed with water. This was then aspirated away. Next, the endoscope was removed and the ablation electrode using a 60 side ablation, electrode was attached to the endoscope. The scope was then reintroduced into the patient's distal esophagus and Dasilva's tissue was targeted, treating all areas that were seen. The ablation electrode was positioned under direct visualization, so that the ablation electrode was in contact with the Dasilva's tissue. Energy was applied twice at 40 W/cm squared and 12 joules J/cm squared. The electrode was then moved to the next area of Dasilva's and each area was treated in the same fashion. I then sloughed off the tissue in these areas and ablation was repeated in all areas as above. There was no evidence of bleeding after the ablation. At this point, the scope was then withdrawn and the [facility] [address] [place] [address] PROCEDURE REPORT Name: RM MARTINEZ Room #: REG KILLIAN Galvin#: [id number] Admission: 05/26/18 Attend Phys: Donnie Alegre Discharge: Date of : 45 Report #: [id number] procedure terminated. The patient tolerated the procedure well. IMPRESSION: 1. Dasilva's esophagus, status post ablation as described above. 2. Otherwise, normal upper endoscopy. RECOMMENDATIONS: 1. Continue daily PPI therapy. 2. Observe the patient post-ablation. 3. We will add Carafate liquid q.i.d. for the next week. 4. A script for Lortab was given today as needed for pain. 5. Repeat procedure in two months' time. Thank you for allowing me to participate in her care. By: 0917 1402 Donnie Chawla MD /nt
== END | disposition home or self-care (01) ==
LOC: GI 06:59
DX: K22.710 Barrett's esophagus with low grade dysplasia (principal); E78.5 Hyperlipidemia, unspecified; I25.2 Old myocardial infarction; F41.9 Anxiety disorder, unspecified; F32.9 Major depressive disorder, single episode, unspecified; Z87.891 Personal history of nicotine dependence; Z79.899 Other long term (current) drug therapy; Z79.82 Long term (current) use of aspirin; Z98.890 Other specified postprocedural states; Z90.49 Acquired absence of other specified parts of digestive tract

== ENCOUNTER → 2018-07-26 | Outpatient (CLI) | payer OTHER ==
[~2018-07-26] VITALS: Ht 157.5 cm; Wt 63.5 kg
--- NOTE | 2018-07-28 08:29 | P ---
[facility] [place] [address] PROCEDURE REPORT Name: RM MARTINEZ [id number] Admission: 07/26/18 ������������������ Attend Phys: Donnie Alegre Discharge: ������������������ Date of : 45 Report #: [id number] THIS REPORT FOR: //name// CC: Donnie Colindres MD DATE OF SERVICE: 07/26/2018 PROCEDURE PERFORMED: Esophagoscopy with ablation of Dasilva's esophagus. HISTORY OF PRESENT ILLNESS: The patient is a 72-year-old female who underwent an upper endoscopy by myself on 05/05/2018 for abdominal pain as well as intermittent nausea and vomiting. At that time, she was taking Pepcid b.i.d. She was noted to have a possible Dasilva's esophagus in the distal esophagus. Biopsies were obtained, which were positive for Dasilva's with focal low-grade dysplasia. We therefore discussed proceeding with possible ablation. The patient underwent her first ablation therapy on 05/26/2018. She is now taking omeprazole on a daily basis. She denies any abdominal pain or dysphagia at this time. She is here for routine followup. She has been holding her aspirin for the last several days. DESCRIPTION OF PROCEDURE: The risks and benefits of the procedure were explained to the patient, those risks including, but not limited to, bleeding, perforation, the risk of sedation. She understood these risks and gave informed consent. Sedation was given using propofol per anesthesia. Next, using a standard Olympus upper endoscope, the scope was placed in the patient's mouth and advanced under direct vision through the esophagus, stomach and into the second portion of the duodenum. The larynx was normal in appearance. The upper and mid esophagus was normal. Once again in the distal esophagus, there was a segment of Dasilva's noted. This extended from 34-37 cm. Small hiatal hernia was again noted. Overall, the gastric mucosa was normal. The pylorus was normal and patent. The duodenal bulb, first and second portion were all normal. The scope was then brought back up into the patient's distal esophagus and the esophagus was irrigated with Mucomyst 1% mixed with water. This was then aspirated away. Next, an in-channel ablation electrode was advanced through the channel into the distal esophagus. The ablation electrode was then positioned under direct visualization so that the ablation electrode was in contact with the Dasilva's tissue. Energy was applied twice at 40 W/cm2 and 12 joules/cm2. Each area was treated twice as per protocol and the next area of Dasilva's was then treated in the same fashion. I then sloughed off the tissue in these areas and ablation was repeated in all areas. There was no evidence of bleeding after ablation. At this point, the scope was then withdrawn and the procedure terminated. The patient tolerated the procedure well. IMPRESSION: [address] [address] PROCEDURE REPORT Name: RM MARTINEZ Room #: REG KILLIAN Galvin#: [id number] Admission: 07/26/18 ������������������ Attend Phys: Donnie Alegre Discharge: ������������������ Date of : 45 Report #: [id number] 1. Dasilva's esophagus, status post ablation as described above. 2. Small hiatal hernia. 3. Otherwise, normal upper endoscopy. RECOMMENDATIONS: 1. Continue daily PPI therapy. 2. Observe the patient post dilation. 3. Carafate liquid q.i.d. for the next week. 4. Repeat procedure in 2 months' time. Thank you for allowing me to participate in her care. ��������������������������������������������� <ELECTRONICALLY SIGNED> ���������������������������������������� By: Donnie Chawla MD ��������������������������������������������� 07/28/18 0829 0845 2147 Donnie Chawla MD /nt
== END ==
LOC: GI 07:04
DX: K22.70 Barrett's esophagus without dysplasia (principal); K44.9 Diaphragmatic hernia without obstruction or gangrene; F41.9 Anxiety disorder, unspecified; F32.9 Major depressive disorder, single episode, unspecified; E78.5 Hyperlipidemia, unspecified; I21.3 ST elevation (STEMI) myocardial infarction of unspecified site; Z90.710 Acquired absence of both cervix and uterus; Z98.890 Other specified postprocedural states; E03.9 Hypothyroidism, unspecified
CPT/HCPCS: 62110; 62900

== ENCOUNTER → 2018-09-22 | Outpatient (CLI) | payer OTHER ==
[~2018-09-22] VITALS: Ht 157.5 cm; Wt 59.0 kg
[~2018-09-22] MED LIST changes: +COQ-10100 MG PO; +FLUOXETINE HCL40 MG PO; +K-TAB10 MEQ PO; +PRILOSEC 20 MG20 MG PO; +SYNTHROID50 MCG PO; +VITAMIN D2000 UNIT PO
--- NOTE | 2018-09-23 11:05 | P ---
[facility] [place] [address] PROCEDURE REPORT Name: RM MARTINEZ Room #: REG [facility] Kamar#: [id number] Admission: 09/22/18 ������������������ Attend Phys: Donnie Alegre Discharge: ������������������ Date of : 45 Report #: [id number] THIS REPORT FOR: //name// CC: Donnie Colindres MD DATE OF SERVICE: 09/22/2018 PROCEDURE PERFORMED: Esophagoscopy with ablation of Dasilva's esophagus. HISTORY OF PRESENT ILLNESS: The patient is a 72-year-old female who underwent an upper endoscopy by myself on 05/05/2018 for abdominal pain. At that time, was taking Pepcid b.i.d. She was noted to have a possible segment of Dasilva's esophagus in the distal esophagus. Biopsies were obtained, which were positive for Dasilva's with focal low-grade dysplasia. We therefore discussed proceeding with possible ablation. She underwent her first ablation therapy on 05/26/2018. She underwent a second ablation on 07/26/2018. She is here for followup today. She has been holding her aspirin. She is currently taking daily PPI therapy. She denies any dysphagia or heartburn symptoms. DESCRIPTION OF PROCEDURE: The risks and benefits of the procedure were explained to the patient, those risks including but not limited to bleeding, perforation, the risk of sedation. She understood these risks and gave informed consent. Sedation was given using propofol per anesthesia. Next, using a standard Olympus upper endoscope, the scope was placed in the patient's mouth and advanced under direct vision through the esophagus, stomach and into the second portion of the duodenum. The upper and mid esophagus was normal in appearance. In the distal esophagus, possible remaining short segment of Dasilva's was noted, but significant improvement since her last 2 ablations. No evidence of erosive esophagitis. A small hiatal hernia was once again noted. Overall, the gastric mucosa was normal. The pylorus was normal and patent. The duodenal bulb, first and second portion were all normal. The scope was then brought back up into the patient's distal esophagus and the esophagus was irrigated with Mucomyst 1% mixed with water. This was then aspirated away. Next, an in-channel ablation electrode was advanced through the channel into the distal esophagus. The ablation electrode was then positioned under direct visualization, so the ablation electrode was in contact with the Dasilva's tissue. Energy was applied twice at 40 W/cm squared and 12 joules/cm squared. Each area was treated twice as per protocol. I then sloughed off the tissue and these areas were once again treated again in the same fashion. There was no evidence of bleeding after ablation. At this point, the scope was then withdrawn and the procedure terminated. The patient tolerated the procedure well. IMPRESSION: [facility] [address] [place] [address] PROCEDURE REPORT Name: RM MARTINEZ James Room #: REG KILLIAN Galvin#: [id number] Admission: 09/22/18 ������������������ Attend Phys: Donnie Alegre Discharge: ������������������ Date of : 45 Report #: [id number] 1. Short segment Dasilva's, status post ablation as described above. 2. Small hiatal hernia. 3. Otherwise, normal upper endoscopy. RECOMMENDATIONS: 1. Observe the patient post-procedure. 2. Continue daily PPI therapy. 3. Repeat EGD with possible ablation in 2 months' time. Thank you for allowing me to participate in her care. ��������������������������������������������� <ELECTRONICALLY SIGNED> ���������������������������������������� By: Donnie Chawla MD ��������������������������������������������� 09/23/18 1105 0921 0359 Donnie Chawla MD /nt
== END | disposition home or self-care (01) ==
LOC: GI 07:23
DX: K22.719 Barrett's esophagus with dysplasia, unspecified (principal); K44.9 Diaphragmatic hernia without obstruction or gangrene; E78.5 Hyperlipidemia, unspecified; I25.2 Old myocardial infarction; F32.9 Major depressive disorder, single episode, unspecified; F41.9 Anxiety disorder, unspecified; Z87.891 Personal history of nicotine dependence; Z90.710 Acquired absence of both cervix and uterus; Z90.49 Acquired absence of other specified parts of digestive tract; Z98.890 Other specified postprocedural states; Z87.440 Personal history of urinary (tract) infections; Z79.899 Other long term (current) drug therapy; Z79.82 Long term (current) use of aspirin
CPT/HCPCS: 62110; 62900

== ENCOUNTER → 2019-01-08 | Outpatient (CLI) | payer OTHER ==
[~2019-01-08] VITALS: Ht 157.5 cm; Wt 59.0 kg
[~2019-01-08] MED LIST changes: +OMEPRAZOLE 20 M20 M1 PO
--- NOTE | 2019-01-08 11:47 | P ---
[facility] [place] [address] PROCEDURE REPORT Name: RM MARTINEZ [id number] Admission: 01/08/19 ������������������ Attend Phys: Donnie Alegre Discharge: ������������������ Date of : 45 Report #: [id number] THIS REPORT FOR: //name// CC: Donnie Colindres MD DATE OF SERVICE: 01/08/2019 PROCEDURE PERFORMED: Esophagoscopy with ablation. HISTORY OF PRESENT ILLNESS: The patient is a 73-year-old female with a history of Dasilva's esophagus and low-grade dysplasia. She has now undergone 3 ablations by myself, last one being 09/22/2018 for short segment of Dasilva's. Plan is for repeat upper endoscopy with possible ablation. She is currently taking daily PPI therapy. She denies any heartburn or dysphagia. DESCRIPTION OF PROCEDURE: The risks and benefits of the procedure were explained to the patient, those risks including but not limited to bleeding, perforation, the risk of sedation. She understood these risks and gave informed consent. Sedation was given using propofol per anesthesia. Next, using a standard Olympus upper endoscope, the scope was placed in the patient's mouth and advanced under direct vision through the esophagus, stomach and into the second portion of the duodenum. The upper and mid esophagus was normal in appearance. In the distal esophagus, a short segment of Dasilva's was again noted. This was approximately 1 cm above the GE junction. No evidence of esophagitis. Upon entering the stomach, a small hiatal hernia was once again noted. Overall, the gastric mucosa was normal. The pylorus was normal and patent. The duodenal bulb, first and second portion were all normal. The scope was then brought back up into the patient's distal esophagus and the area was then irrigated with Mucomyst 1% mixed solution with water. This was then aspirated away. Next, using an in-channel ablation electrode, this was advanced through the channel to the distal esophagus. The ablation electrode was then positioned under direct visualization, so that the ablation electrode was in contact with the Dasilva's tissue. Energy was applied twice at 40 W/cm squared and 12 joules/cm squared. Each area was treated twice per protocol. I then sloughed off the tissue in these areas and each area was again treated twice. No evidence of bleeding was noted after ablation. At this point, the scope was then withdrawn and the procedure terminated. The patient tolerated the procedure well. IMPRESSION: 1. Short segment Dasilva's, status post ablation as described above. 2. Small hiatal hernia. 3. Otherwise, normal upper endoscopy. [address] [address] PROCEDURE REPORT Name: RM MARTINEZ Room #: REG KILLIAN Galvin#: [id number] Admission: 01/08/19 ������������������ Attend Phys: Donnie Alegre Discharge: ������������������ Date of : 45 Report #: [id number] RECOMMENDATIONS: 1. Observe the patient post-procedure. 2. Continue daily PPI therapy. 3. Repeat upper endoscopy with possible ablation in 2 months' time. Thank you for allowing me to participate in her care. ��������������������������������������������� <ELECTRONICALLY SIGNED> ���������������������������������������� By: Donnie Chwala MD ��������������������������������������������� 01/08/19 1147 0849 0944 Donnie Chawla MD /nt
== END | disposition home or self-care (01) ==
LOC: GI 07:26
DX: K22.710 Barrett's esophagus with low grade dysplasia (principal); K44.9 Diaphragmatic hernia without obstruction or gangrene; K21.9 Gastro-esophageal reflux disease without esophagitis; I25.2 Old myocardial infarction; F32.9 Major depressive disorder, single episode, unspecified; F41.9 Anxiety disorder, unspecified; E78.5 Hyperlipidemia, unspecified; Z90.710 Acquired absence of both cervix and uterus; Z98.890 Other specified postprocedural states; Z87.891 Personal history of nicotine dependence; Z79.899 Other long term (current) drug therapy; Z90.49 Acquired absence of other specified parts of digestive tract
CPT/HCPCS: 62110; 62900

== ENCOUNTER → 2019-04-27 | Outpatient (CLI) | payer OTHER ==
[~2019-04-27] VITALS: Ht 157.5 cm; Wt 59.0 kg
--- NOTE | 2019-05-02 08:18 | P ---
[facility] [place] [address] PROCEDURE REPORT Name: RM MARTINEZ Room #: REG Collin Wolff.#: [id number] Admission: 04/27/19 Attend Phys: Donnie Alegre Discharge: Date of : 45 Report #: [id number] THIS REPORT FOR: //name// CC: Donnie Chawla FAM unknown ELIZABETH HATCHLUISSARAH SHEN DATE OF SERVICE: 04/27/2019 PROCEDURE PERFORMED: Esophagoscopy with ablation. HISTORY OF PRESENT ILLNESS: The patient is a 73-year-old female with history of Dasilva's esophagus and low-grade dysplasia. She has now undergone 4 ablations by myself, last one being on 01/08/2019 for short segment of Dasilva's. She is here today for repeat upper endoscopy with possible ablation, currently taking daily omeprazole. She denies any heartburn or dysphagia. DESCRIPTION OF PROCEDURE: The risks and benefits of the procedure were explained to the patient, those risks including but not limited to bleeding, perforation and the risk of sedation. She understood these risks and gave informed consent. Sedation was given using propofol per anesthesia. Next, using a standard Olympus upper endoscope, the scope was placed in the patient's mouth and advanced under direct vision through the esophagus, stomach and into the second portion of the duodenum. The upper and mid esophagus was normal in appearance. In the distal esophagus, there appears to be a small 2-3 mm segment of Dasilva's just above the GE junction. This is much improved from previous ablations. No evidence of esophagitis or stricture. Upon entering the stomach, a small hiatal hernia was once again noted. Overall, the gastric mucosa was normal. The pylorus was normal and patent. The duodenal bulb, first and second portion were all normal. The scope was then brought back up into the distal esophagus, at which point a Mucomyst 1% mixed with water solution was irrigated in the distal esophagus and aspirated away. Next, the scope was then withdrawn and a 60 RFA catheter was applied over the scope. Next, the scope was then reintroduced into the patient's mouth and advanced under direct vision to the distal esophagus, at which point, the ablation electrode was then positioned under direct visualization, so the ablation electrode was in contact with the Dasilva's tissue. Energy was applied twice at 40 W/cm squared and 12 joules/cm squared. Each area was treated twice per protocol. I then sloughed off the tissue in these areas and the area was treated again. No evidence of bleeding was noted after ablation. A total of 5 treatments were applied at this session. At this point, the scope was then withdrawn and the procedure terminated. The patient tolerated the procedure well. IMPRESSION: 1. Short segment Dasilva's, status post ablation as described above, much improved in general. [facility] [address] [place] [address] PROCEDURE REPORT Name: RM MARTINEZ Room #: REG KILLIAN Galvin#: [id number] Admission: 04/27/19 Attend Phys: Donnie Alegre Discharge: Date of : 45 Report #: [id number] 2. Small hiatal hernia. 3. Otherwise, normal upper endoscopy. RECOMMENDATIONS: 1. Observe the patient post-procedure. 2. Continue daily PPI therapy. 3. Repeat upper endoscopy with possible ablation in 2 months' time. Thank you for allowing me to participate in her care. <ELECTRONICALLY SIGNED> By: Donnie Chawla MD 05/02/19 0818 0928 [address] Donnie Chawla MD /nt
== END | disposition home or self-care (01) ==
LOC: GI 07:31
DX: K22.70 Barrett's esophagus without dysplasia (principal); K44.9 Diaphragmatic hernia without obstruction or gangrene; I10 Essential (primary) hypertension; E78.5 Hyperlipidemia, unspecified; I25.2 Old myocardial infarction; F32.9 Major depressive disorder, single episode, unspecified; F41.9 Anxiety disorder, unspecified; K21.9 Gastro-esophageal reflux disease without esophagitis; Z98.890 Other specified postprocedural states; Z79.899 Other long term (current) drug therapy; Z90.710 Acquired absence of both cervix and uterus; Z87.891 Personal history of nicotine dependence; Z90.49 Acquired absence of other specified parts of digestive tract
CPT/HCPCS: 62110; 62900

== ENCOUNTER → 2019-10-24 | Outpatient (CLI) | payer OTHER ==
[~2019-10-24] VITALS: Ht 157.5 cm; Wt 59.0 kg
[~2019-10-24] MED LIST changes: +VITAMIN D31250 MCG PO
--- NOTE | ~2019-10-24 | P ---
[facility] [place] [address] PROCEDURE REPORT Name: RM MARTINEZ Room #: REG [facility] Mariella.#: [id number] Admission: 10/24/19 Attend Phys: Donnie Alegre Discharge: Date of : 45 Report #: [id number] THIS REPORT FOR: cc: AARON ISRAEL Physician not on staff Donnie Chawla MD ~ CC: AARON Chawla Physician staff DATE OF SERVICE: 10/24/2019 PROCEDURE PERFORMED: Esophagoscopy with ablation. HISTORY OF PRESENT ILLNESS: The patient is a 74-year-old female with a history of Dasilva's esophagus and low-grade dysplasia. She has now undergone 5 ablations, last one being on 04/27/2019 for a short segment of Dasilva's. She is currently on daily PPI therapy. She denies any heartburn or dysphagia. DESCRIPTION OF PROCEDURE: The risks and benefits of the procedure were explained to the patient, those risks including but not limited to bleeding, perforation and the risk of sedation. She understood these risks and gave informed consent. Sedation was given using propofol per anesthesia. Next, using a standard Olympus upper endoscope, the scope was placed in the patient's mouth and advanced under direct vision through the esophagus, stomach and into the second portion of the duodenum. The upper and mid esophagus was normal in appearance. In the distal esophagus, a possible short segment of Dasilva's was again noted in two small areas, also a small area of inflammation. Upon entering the stomach, a small hiatal hernia was once again noted. Overall, the gastric mucosa was normal. The pylorus was normal and patent. The duodenal bulb, first and second portion were all normal. The scope was then brought back up into the patient's distal esophagus, at which point a Mucomyst 1% mixed with water solution was irrigated in the distal esophagus and aspirated away. Next, the scope was then withdrawn and a 60 RFA catheter was applied over the scope. Next, the scope was then reintroduced into the patient's mouth and advanced under direct vision in the distal esophagus, at which point, the ablation electrode was then positioned under direct visualization, so the ablation electrode was in contact with the Dasilva's tissue. Energy was applied twice at 40 W/cm squared and 12 joules/cm squared in each area. A total of 4 treatments were provided. No evidence of bleeding was noted after ablation. At this point, the scope was then withdrawn and the procedure was terminated. The patient tolerated the procedure well. IMPRESSION: 1. Short segment Dasilva's esophagus, status post ablation as described above. [address] [address] PROCEDURE REPORT Name: RM MARTINEZ Room #: REG KILLIAN Galvin#: [id number] Admission: 10/24/19 Attend Phys: Donnie Alegre Discharge: Date of : 45 Report #: [id number] 2. Small hiatal hernia. 3. Otherwise, normal upper endoscopy. RECOMMENDATIONS: 1. Observe the patient post-procedure. 2. We will increase daily PPI therapy to b.i.d. PPI therapy. 3. Repeat endoscopy with possible ablation in 2 months' time. Thank you for allowing me to participate in her care. By: 0900 1042 Donnie Chawla MD /nt
== END | disposition home or self-care (01) ==
LOC: GI 06:59
PROVIDERS: ATTEND Specialist
DX: K22.70 Barrett's esophagus without dysplasia (principal); K44.9 Diaphragmatic hernia without obstruction or gangrene; K21.9 Gastro-esophageal reflux disease without esophagitis; I10 Essential (primary) hypertension; I25.2 Old myocardial infarction; E78.5 Hyperlipidemia, unspecified; F32.9 Major depressive disorder, single episode, unspecified; F41.9 Anxiety disorder, unspecified; Z11.59 Encounter for screening for other viral diseases; Z98.890 Other specified postprocedural states; Z79.899 Other long term (current) drug therapy; Z87.891 Personal history of nicotine dependence; Z90.49 Acquired absence of other specified parts of digestive tract
CPT/HCPCS: 62110; 62900